=== PATIENT | male | born 1975 | race Two or more races ===

== ENCOUNTER 2022-04-20 02:11 | Emergency (ER) | payer MEDICARE, MEDICAID ==
[~2022-04-20] VITALS: Ht 182.9 cm; Wt 125.0 kg
[2022-04-20 02:14] VITALS: BP 162/87
[2022-04-20 03:15] LABS: Basophils # (auto) 0 10 ^3/uL (0-0.2); Eosinophils # (auto) 0 10 ^3/uL (0-0.8); Eosinophils % (auto) 0.4 % (0.0-7.0); Monocytes # (auto) 0.4 10 ^3/uL (0-1.3); Nucleated Red Blood Cells % 0.1 %
[2022-04-20 03:16] LABS: Basophils % (auto) 0.4 % (0.0-2.0); Lymphocytes # (auto) 1.4 10 ^3/uL (0.4-5.4); Lymphocytes % (auto) 16.9 % (10.0-50.0); Mean Corpuscular Hemoglobin 20.9 pg (28.0-32.0); Mean Corpuscular Hgb Conc. 30.2 g/dL (32.0-36.0); Mean Corpuscular Volume 69.3 fL (80.0-100.0); Neutrophils # (auto) 6.5 10 ^3/uL (1.6-8.6); Neutrophils % (auto) 77.3 % (37.0-80.0); White Blood Cell 8.4 10^3/uL (4.4-10.8)
[2022-04-20 03:24] LABS: Red Cell Distribution Width 21.3 % (11.8-14.3)
[2022-04-20 03:32] LABS: Albumin 3.9 g/dL (3.4-5.0); BUN/Creatinine Ratio 9.5; Calcium 9.3 mg/dL (8.5-10.1); Potassium 4.7 mmol/L (3.5-5.1)
[2022-04-20 03:34] LABS: Bilirubin, Total 1.3 mg/dL (0.2-1.0); Total Protein 7.1 g/dL (6.4-8.2)
[2022-04-20] MEDS ORDERED: PRED20TA2 PO (06:02)
[2022-04-20] MEDS ORDERED: AZIT250T9 PO (06:02)
[2022-04-20] MEDS ORDERED: ALBUAER3 IN (06:02)
== END 2022-04-20 06:43 | disposition home or self-care (01) ==
LOC: ER 02:13
DX: J20.9 Acute bronchitis, unspecified (principal); Z98.890 Other specified postprocedural states
CPT/HCPCS: 36415; 70450; 71045; 74176; 80053; 84484; 85025; 93005

== ENCOUNTER 2023-07-21 11:21 | Emergency (ER) | payer MEDICARE, MEDICAID ==
[~2023-07-21] VITALS: Ht 182.9 cm; Wt 94.8 kg
[~2023-07-21 11:21] MED LIST: ALBUAER3 IN; AZIT-43 PO; PRED20TA2 PO
[2023-07-21 13:13] VITALS: BP 124/72; PULSE 90; RESP 16; TEMP 97.9; O2SAT 98
== END 2023-07-21 13:19 | disposition home or self-care (01) ==
LOC: ER 11:21
DX: Z01.89 Encounter for other specified special examinations (principal); Z79.2 Long term (current) use of antibiotics; Z79.899 Other long term (current) drug therapy; Z88.8 Allergy status to other drugs, medicaments and biological substances
CPT/HCPCS: 87040